=== PATIENT | male | born 1995 | race Caucasian/White ===

== ENCOUNTER 2019-09-21 10:09 | Emergency (ER) | payer MEDICAID ==
[~2019-09-21] VITALS: Ht 182.9 cm; Wt 77.1 kg
--- NOTE | 2019-09-21 10:15 | NUR ---
pt. not in the room
[2019-09-21 10:22] VITALS: BP 128/74
--- NOTE | 2019-09-21 10:30 | NUR ---
ED Nurse Note: patient walked into ED from home c/o nausea and vomiting for the past few days. patient reports he needs "doctor's note" for his sober living facility as well. patient reports itchiness as well. patient is alert awake x4 ambulatory, breathing unlabored and even, speaking in full sentences.
--- NOTE | 2019-09-21 10:45 | Emergency Room Report ---
History of Present Illness General Chief Complaint: Nausea Source: Patient Present Illness HPI Disclaimer: Please note that this report is being documented using [employer] technology. This can lead to erroneous entry secondary to incorrect interpretation by the dictating instrument. HPI: 23-year-old male presents for evaluation of nausea and vomiting. Symptoms present 3 days. Unable to hold down anything for 2 days until this morning when he was able to eat a banana. Denies significant abdominal pain but reports severe nausea. Trying to hydrate orally but stating he feels dehydrated and weak fatigue. Decreased urine output. Denies dysuria hematuria. Denies fever chills. Denies shortness of breath, chest pain, palpitations. Allergies: Coded Allergies: No Known Allergies (Unverified , 09/21/19) Review of Systems All Other Systems: negative except mentioned in HPI Physical Exam Vital Signs Date Time Temp Pulse Resp B/P (MAP) Pulse Ox O2 Delivery O2 Flow Rate FiO2 09/21/19 10:22 98.1 105 19 128/74 (92) 99 Room Air General: Awake and alert, no acute distress HEENT: NC/AT. EOMI. Cardiovascular: RRR. S1 and S2 normal. No murmur appreciated Resp: Normal work of breathing. No cough, wheezing or crackles appreciated Abdomen: Abdomen is soft, nondistended. Mild diffuse tenderness. No rebound. Skin: Intact. No abrasions, laceration or rash over the exposed skin MSK: Normal tone and bulk. Moving all extremities. No obvious deformity. Neuro: Awake and alert. Mentating appropriately. Medical Decision Making Diagnostic Impression: Primary Impression: Nausea and vomiting in adult patient ER Course 23-year-old male presents for 2 days nausea and vomiting. Will check labs to evaluate for dehydration give IV fluids. Will provide antiemetics. Belly is soft. Do not believe he requires advanced imaging at this time. Can reevaluate and reassess. Laboratory Tests Test 09/21/19 10:49 White Blood Count 4.8 K/UL (4.8-10.8) Red Blood Count 4.64 M/UL (4.70-6.10) L Hemoglobin 14.1 G/DL (14.2-18.0) L Hematocrit 40.9 % (42.0-52.0) L Mean Corpuscular Volume 88 FL (80-99) Mean Corpuscular Hemoglobin 30.3 PG (27.0-31.0) Mean Corpuscular Hemoglobin Concent 34.4 G/DL (32.0-36.0) Red Cell Distribution Width 10.8 % (11.6-14.8) L Platelet Count 168 K/UL (150-450) Mean Platelet Volume 7.9 FL (6.5-10.1) Neutrophils (%) (Auto) 50.7 % (45.0-75.0) Lymphocytes (%) (Auto) 31.8 % (20.0-45.0) Monocytes (%) (Auto) 11.5 % (1.0-10.0) H Eosinophils (%) (Auto) 5.2 % (0.0-3.0) H Basophils (%) (Auto) 0.8 % (0.0-2.0) Sodium Level 144 MMOL/L (136-145) Potassium Level 4.3 MMOL/L (3.5-5.1) Chloride Level 104 MMOL/L (98-107) Carbon Dioxide Level 32 MMOL/L (21-32) Anion Gap 8 mmol/L (5-15) Blood Urea Nitrogen 11 mg/dL (7-18) Creatinine 0.8 MG/DL (0.55-1.30) Estimate Glomerular Filtration Rate > 60 mL/min (>60) Glucose Level 90 MG/DL (74-106) Calcium Level 9.2 MG/DL (8.5-10.1) Reevaluation Time: 13:29 Last Vital Signs Date Time Temp Pulse Resp B/P (MAP) Pulse Ox O2 Delivery O2 Flow Rate FiO2 09/21/19 10:22 98.1 105 19 128/74 99 Room Air Status: improved Reevaluation Impression Labs unremarkable. Nausea resolved. Patient is well-appearing stable vital signs and stable for outpatient follow-up. Will prescribe Zofran. Can return with new or worsening symptoms. Disposition: HOME, SELF-CARE Condition: Improved Scripts Ondansetron Odt* (ZOFRAN ODT*) 4 Mg Tab.rapdis 4 MG BC EVERY 6 HOURS PRN for Nausea & Vomiting, #20 TAB 0 Refills Prov: Braxton Rosenthal MD 09/21/19 Braxton Rosenthal MD Sep 21, 2019 10:45
[2019-09-21 11:20] LABS: BASOPHILS % (AUTO) 0.8 % (0.0-2.0); EOSINOPHILS % (AUTO) 5.2 % (0.0-3.0); HEMATOCRIT 40.9 % (42.0-52.0); HEMOGLOBIN 14.1 G/DL (14.2-18.0); LYMPHOCYTES % (AUTO) 31.8 % (20.0-45.0); MEAN CORPUSCULAR VOLUME 88 FL (80-99); MONOCYTES % (AUTO) 11.5 % (1.0-10.0); NEUTROPHILS % (AUTO) 50.7 % (45.0-75.0); PLATELET COUNT 168 K/UL (150-450); RED BLOOD COUNT 4.64 M/UL (4.70-6.10); RED CELL DISTRIBUTION WIDTH 10.8 % (11.6-14.8); WHITE BLOOD COUNT 4.8 K/UL (4.8-10.8)
[2019-09-21 11:50] LABS: ANION GAP 8 mmol/L (5-15); BLOOD UREA NITROGEN 11 mg/dL (7-18); CALCIUM 9.2 MG/DL (8.5-10.1); CARBON DIOXIDE 32 MMOL/L (21-32); CHLORIDE 104 MMOL/L (98-107); CREATININE 0.8 MG/DL (0.55-1.30); POTASSIUM 4.3 MMOL/L (3.5-5.1); SODIUM 144 MMOL/L (136-145)
[2019-09-21] MEDS ORDERED: ONDANSETRON ODT4 MG BC (12:03)
[2019-09-21 12:30] VITALS: BP 128/74
--- NOTE | 2019-09-21 12:30 | NUR ---
ER DISCHARGE NOTE: Patient is cleared to be discharged per ERMD DR SOMMERS, pt is aox4, on room air, with stable vital signs. pt was given dc and prescription instructions, pt was able to verbalize understanding, pt id band and iv site removed without complications. pt is able to ambulate with steady gait. pt took all belongings.
== END 2019-09-21 12:30 | disposition home or self-care (01) ==
LOC: EMR 10:50
DX: R11.2 Nausea with vomiting, unspecified (principal)
CPT/HCPCS: 36415; 80048; 85025; 96360; J7030; Z7502; 99284